=== PATIENT | female | born 1985 | race Two or more races ===

== ENCOUNTER 2021-12-30 12:22 | Outpatient (CLI) | payer OTHER | END 2021-12-30 12:23 | disposition critical access hospital (66) | LOC: EMS 12:22 | DX: F41.9 Anxiety disorder, unspecified (principal); R53.83 Other fatigue | CPT/HCPCS: A0425; A0429 ==

== ENCOUNTER 2021-12-30 12:47 | Emergency (ER) | payer OTHER ==
--- NOTE | 2021-12-30 13:25 | ED Physician Documentation ---
PD HPI MHE - Stated complaint Stated Complaint: ANXIETY - Chief complaint Chief Complaint: MHE - History obtained from History obtained from: Patient - History of Present Illness Primary symptom: Anxiety Timing - onset: How many days ago (abrupt onset 3 days ago when walking out of [employer] store, had onset suddently of dyspnea, lightheaded, and feeling shaky. Noted onset of hives shortly after. Has had marked anxiety about symptoms happening again. History of insomnia and some anxiety, but not like current episode.) Contributing factors: Other (anxiety currently about having the same symptoms again that she had 3 days ago.). No: Substance abuse - ETOH, Substance abuse - drugs Similar symptoms before: Has not had sx before Recently seen: Not recently seen (but has appt with PCP later this week. They could not get her in sooner.) Review of Systems Constitutional: denies: Fever, Chills Nose: denies: Rhinorrhea / runny nose, Congestion Throat: denies: Sore throat Cardiac: denies: Chest pain / pressure Respiratory: reports: Dyspnea. denies: Cough, Wheezing GI: reports: Nausea. denies: Abdominal Pain, Vomiting, Diarrhea Psychiatric: reports: Anxiety (has had anxiety for long time. Previously Rx Sertraline but had side effects so only took 3 weeks. Has not had meds since (was few years ago). has insomnia often and has taken melatonin without much improvement.), Insomnia. denies: Depressed, Suicidal PD PAST MEDICAL HISTORY - Past Medical History Cardiovascular: None Respiratory: None Neuro: None Endocrine/Autoimmune: None Psych: Anxiety - Present Medications Home Medications: Ambulatory Orders Medication Instructions Recorded Confirmed Cetirizine [ZyrTEC] 10 mg PO DAILY #20 tablet 12/30/21 dexAMETHasone [Decadron] 4 mg PO DAILY #5 tablet 12/30/21 traZODone [Desyrel] 50 mg PO HS 10 Days #10 tablet 12/30/21 - Allergies Allergies/Adverse Reactions: Allergies Allergy/AdvReac Type Severity Reaction Status Date / Time No Known Drug Allergies Allergy Verified 12/30/21 12:51 PD ED PE NORMAL - Vitals Vital signs reviewed: Yes - General General: Alert and oriented X 3, No acute distress, Well developed/nourished - HEENT HEENT: Moist mucous membranes, Pharynx benign - Neck Neck: Supple, no meningeal sign, No adenopathy - Cardiac Cardiac: RRR, No murmur - Respiratory Respiratory: Clear bilaterally - Abdomen Abdomen: Soft, Non tender - Derm Derm: Normal color, Warm and dry, Other (diffuse patchy slightly raised red rash c/w hives. ) - Extremities Extremities: Normal ROM s pain, No edema - Psych Psych: No: Normal affect (anxious but pleasant and talks freely. ) Results - Vitals Vitals: Vital Signs - 24 hr 12/30/21 14:38 Temperature 36.5 C Heart Rate 86 Respiratory 16 Rate Blood Pressure 130/88 H O2 Saturation 98 Oxygen O2 Source Room air PD MEDICAL DECISION MAKING - ED course Complexity details: considered differential (current episode sounds like acute allergic reaction with hives, dyspnea, lightheaded abruptly. Consider inset s ting or such. However having marked anxiety obut it happening again. Will treat allergic reaction. Discussed with her med for sleep/anxiety, to start at low dose. ), d/w patient Departure - Departure Disposition: Home, Self Care Clinical Impression: Anxiety about health Allergic reaction Qualifiers: Encounter type: initial encounter Qualified Code(s): T78.40XA - Allergy, unspecified, initial encounter Insomnia Qualifiers: Insomnia type: unspecified Qualified Code(s): G47.00 - Insomnia, unspecified Condition: Stable Record reviewed to determine appropriate education?: Yes Instructions: ED Allergic Reaction General Other, ED Insomnia Follow-Up: [facility] [Provider Group] Prescriptions: dexAMETHasone [Decadron] 4 mg PO DAILY #5 tablet traZODone [Desyrel] 50 mg PO HS 10 Days #10 tablet Cetirizine [ZyrTEC] 10 mg PO DAILY #20 tablet Comments: It sounds like you had an allergic reaction to something. Consideration could possibly be an insect sting or such that happened without being aware. The abruptness of it sounds more likely that rather than environmental or food allergy. I would have you take cetirizine twice daily for the next few days and then once daily after that for another week or 2. Decadron steroid for the allergic reaction daily for several more days. Some of your symptoms right now may be persisting allergic reaction symptoms. It does sound like there is some element of anxiety related to the event and it not wanting to happen again. This makes sense. If also had insomnia and so we can try treating with a medicine to help with sleep at night and see if this also allows for less anxiety through the day. Follow-up with your primary care this coming week as scheduled. See how much improvement you have overall. They can increase or change your medication if not helping too well. We like to start off with a lower dose. I transmitted your prescriptions to [facility] in [place]. Discharge Date/Time: 12/30/21 14:37
[2021-12-30] MEDS ORDERED: CETIRIZINE 10 MG TABLET PO STA (14:20)
[2021-12-30] MEDS ORDERED: CHERRY SYRUP 10 ML UDC PO ONE (14:20)
[2021-12-30] MEDS ORDERED: DEXAMETHASONE 10 MG/ML VIAL PO STA (14:20)
[2021-12-30 14:39] VITALS: BP 130/88
== END 2021-12-30 14:37 | disposition home or self-care (01) ==
LOC: ED 12:47
DX: F41.1 Generalized anxiety disorder (principal); G47.00 Insomnia, unspecified; T78.40XA Allergy, unspecified, initial encounter
CPT/HCPCS: 99283; A9270